=== PATIENT | female | born 1945 | race Native Hawaiian/Other Pacific Islander ===

== ENCOUNTER 2016-09-28 09:01 | Outpatient (CLI) | payer OTHER ==
[2016-09-28 09:17] LABS: PLATELET COUNT 260 K/uL (152-353)
[2016-09-28 09:45] LABS: SODIUM 138 mmol/L (136-145)
== END 2016-09-28 19:04 | disposition home or self-care (01) ==
LOC: LABW 09:01
PROVIDERS: Internal Medicine
DX: E03.8 Other specified hypothyroidism (principal); Z79.899 Other long term (current) drug therapy; Z51.81 Encounter for therapeutic drug level monitoring
CPT/HCPCS: 36415; 80053; 80061; 81000; 84439; 84443; 85027

== ENCOUNTER 2017-10-29 11:35 | Outpatient (CLI) | payer OTHER ==
[2017-10-29 12:07] LABS: PLATELET COUNT 257 K/uL (152-353)
[2017-10-29 12:31] LABS: POTASSIUM 4.1 mmol/L (3.6-5.2)
== END 2017-10-29 19:46 | disposition home or self-care (01) ==
LOC: LABW 11:35
PROVIDERS: Internal Medicine
DX: M19.012 Primary osteoarthritis, left shoulder (principal); E03.8 Other specified hypothyroidism; E78.00 Pure hypercholesterolemia, unspecified; R82.99 Other abnormal findings in urine
CPT/HCPCS: 36415; 80053; 80061; 81000; 84439; 84443; 85027; 87077; 87086; 87088; 87186

== ENCOUNTER 2018-09-13 15:35 | Outpatient (CLI) | payer OTHER | END 2018-09-13 20:32 | disposition home or self-care (01) | LOC: RAD 15:35 | DX: M54.5 Low back pain (principal) ==

== ENCOUNTER 2019-06-08 13:31 | Outpatient (CLI) | payer OTHER | END 2019-06-08 20:21 | disposition home or self-care (01) | LOC: RAD 13:31 | DX: Z12.31 Encounter for screening mammogram for malignant neoplasm of breast (principal); Z13.820 Encounter for screening for osteoporosis; N95.8 Other specified menopausal and perimenopausal disorders ==

== ENCOUNTER 2019-06-28 09:59 | Day surgery (SDC) | payer OTHER | END 2019-06-29 14:20 | disposition home or self-care (01) | LOC: OR 09:59 | PROC: 0DBK8ZZ Excision of Ascending Colon, Via Natural or Artificial Opening Endoscopic (ICD-10-PCS; principal; 2019-06-28) | PROC: 0DBL8ZZ Excision of Transverse Colon, Via Natural or Artificial Opening Endoscopic (ICD-10-PCS; 2019-06-28) | PROC: 0DBH8ZZ Excision of Cecum, Via Natural or Artificial Opening Endoscopic (ICD-10-PCS; 2019-06-28) | DX: D12.0 Benign neoplasm of cecum (principal); D12.2 Benign neoplasm of ascending colon; D12.3 Benign neoplasm of transverse colon; K64.8 Other hemorrhoids; Z80.0 Family history of malignant neoplasm of digestive organs; Z12.11 Encounter for screening for malignant neoplasm of colon | CPT/HCPCS: J2001; J2405; J2704 ==

== ENCOUNTER 2022-08-10 13:40 | Outpatient (CLI) | payer OTHER ==
[2022-08-10 14:21] LABS: PLATELET COUNT 266 K/uL (152-353)
[2022-08-10 14:35] LABS: POTASSIUM 4.1 mmol/L (3.6-5.2)
== END 2022-08-10 21:41 | disposition home or self-care (01) ==
LOC: LAB 13:40
PROVIDERS: ATTEND Internal Medicine
DX: E03.8 Other specified hypothyroidism (principal); E55.9 Vitamin D deficiency, unspecified; R73.9 Hyperglycemia, unspecified; G45.9 Transient cerebral ischemic attack, unspecified
CPT/HCPCS: 80053; 80061; 81002; 82306; 83036; 84439; 84443; 85027; 85379

== ENCOUNTER 2022-08-25 07:42 | Outpatient (CLI) | payer OTHER | END 2022-08-25 22:01 | disposition home or self-care (01) | LOC: US 07:42 → MRI 09:00 → US 10:30 | PROVIDERS: ATTEND Internal Medicine | DX: G45.9 Transient cerebral ischemic attack, unspecified (principal) | CPT/HCPCS: A9576 ==

== ENCOUNTER 2022-09-11 10:59 | Outpatient (CLI) | payer OTHER | END 2022-09-11 19:16 | disposition home or self-care (01) | LOC: CT 10:59 | PROVIDERS: ATTEND Internal Medicine | DX: R22.1 Localized swelling, mass and lump, neck (principal) ==

== ENCOUNTER 2022-11-10 09:23 | Outpatient (CLI) | payer OTHER ==
[~2022-11-10] VITALS: Ht 170.2 cm; Wt 123.8 kg
== END 2022-11-10 19:07 | disposition home or self-care (01) ==
LOC: NM 09:23
PROVIDERS: ATTEND Specialist
DX: Z01.810 Encounter for preprocedural cardiovascular examination (principal); G45.8 Other transient cerebral ischemic attacks and related syndromes; R61 Generalized hyperhidrosis; R53.1 Weakness; I77.89 Other specified disorders of arteries and arterioles; R22.1 Localized swelling, mass and lump, neck
CPT/HCPCS: A9500; J2785